=== PATIENT | female | born 1980 | race Caucasian/White ===

== ENCOUNTER → 2016-12-07 | Outpatient (CLI) | payer MEDICAID ==
[~2016-12-07] MED LIST: ALDA50TA2 PO; AMOX500C PO; ATOR40TA16 PO; CLAR10CA3 PO; DULE100A INH; FLUT1INH7 INH; FLUT1SPR5 EACH NARE; FURO1TAB62 PO; HYDR-3535 PO; INFL1INJ54 IM; LORA-361 PO; OXYC1TAB36 PO; PROT40TA PO; RANI150T PO; VENTAER INH; ZANT150T2 PO; ZOFR4TAB PO
[2016-12-07 10:43] LABS: HEMATOCRIT 43.1 % (35.0-46.0); MEAN CELL VOLUME 83.7 FL (80.0-100.0); MEAN CORPUSCULAR HEMOGLOBIN 28.6 PG (27.0-34.0); MEAN CORPUSCULAR HGB CONC 34.1 % (32.0-36.0); PLATELET COUNT 199 TH/MM3 (150-450); RED BLOOD COUNT 5.15 MIL/MM3 (4.00-5.30); RED CELL DISTRIBUTION WIDTH 14.6 % (11.6-17.2); REVIEW FLAG FINAL; WHITE BLOOD COUNT 7.2 TH/MM3 (4.0-11.0)
[2016-12-07 11:04] LABS: BICARBONATE 33.6 MEQ/L (21.0-32.0); POTASSIUM 4.3 MEQ/L (3.5-5.1)
== END ==
LOC: CPRE 09:37
PROVIDERS: ATTEND Neurological Surgery
DX: Z01.812 Encounter for preprocedural laboratory examination (principal)
CPT/HCPCS: 36415; 80048; 85027

== ENCOUNTER → 2016-12-13 | Day surgery (SDC) | payer MEDICAID ==
[~2016-12-13] VITALS: Ht 157.5 cm; Wt 88.7 kg
[~2016-12-13] MED LIST changes: +*ONDANSETRON 4 MG VIAL PERIprocedural Use ONLY ONE; +ACETAMINOPHEN 1000 MG/100 ML VIAL IV ONE; +DO NOT ADM ANY ANTICOAGULANT DRUGS XX PRN; +GELFOAM SIZE 100 ONE; +GENTAMICIN SULFATE 80 MG/2 ML VIAL ONE; +HYDROmorphone HCL PF 2 MG/ML VIAL ONE; +INSULIN HUMAN REGULAR 1,000 UNITS/10 ML VIAL SQ PRN; +LACTATED RINGER'S 1000 ML IV SCH; +LIDOCAINE 1%/EPINEPHrine 1:100,000 SOLN 30 ML VIAL ONE; +METOPROLOL TARTRATE 25 MG TAB PO PRN; +MIDAZOLAM HCL 2 MG/2 ML VIAL ONE; +NEOSTIGMINE 3 MG/3 ML SYR IV ONE; +ONDANSETRON HCL 4 MG/2 ML VIAL IV PUSH ONE; +PHENYLEPH/NS 1000 MCG/10 ML SYR IV ONE; +PROPOFOL 200 MG/20 ML AMP IV ONE; -RANI150T PO; +SODIUM CHLORID 0.9% 500 ML IV SCH; +SUGAMMADEX SODIUM 200 MG/2 ML VIAL IV PUSH ONE; +THROMBIN (TOPICAL) 5,000 UNIT VIAL ONE; +ceFAZolin 1,000 MG/NS 100 ML IV SCH; +ePHEDrine/NS 25 MG/5 ML SYR IV ONE; +fentaNYL CITRATE 250 MCG/5 ML AMP ONE
[2016-12-13 13:59] VITALS: BP 118/83; PULSE 90; RESP 20; TEMP 99.1; O2SAT 97
--- NOTE | 2016-12-13 17:43 | HHI.DCPOC ---
Discharge Care Plan Diagnosis: (1) Pseudotumor cerebri Your Health Problems Are: Incision/Drains Goals to Promote Your Health * To prevent worsening of your condition and complications * To maintain your health at the optimal level Directions to Meet Your Goals Take your medications as prescribed Follow your dietary instruction Follow activity as directed Keep your appointments as scheduled Take your immunizations and boosters as scheduled If your symptoms worsen call your PCP, if no PCP go to Urgent Care Center or Emergency Room Smoking is Dangerous to Your Health. Avoid second hand smoke Call the 24-hour hour crisis hotline for domestic abuse at Ag Morse MD Dec 13, 2016 17:43
--- NOTE | 2016-12-13 18:00 | PD.OP ---
Operative Report Date of Surgery: Dec 13, 2016 Preoperative Diagnosis: (1) Pseudotumor cerebri Pseudotumor cerebri. Status post lumboperitoneal shunt placement with probable low CSF pressure headaches Postoperative Diagnosis: (1) Pseudotumor cerebri Pseudotumor cerebri. Status post lumboperitoneal shunt placement with probable low CSF pressure headaches Procedure: Revision lumboperitoneal shunt with placement of antisiphon valve and in-line reservoir Anesthesia: Gen. endotracheal Surgeon: Ag Morse High Value Associate(s): Ioana Ward Operation and Findings: Patient was brought into the operating room and general endotracheal anesthesia induced without difficulty. CHARLETTE hose and sequential compression devices placed Patient positioned in lateral decubitus position on the beanbag and all extremities appropriately padded The right flank as well as the right abdomen and the sacral region were prepped and draped in a sterile fashion Intraoperative C-arm imaging was used to localize the area of the previously placed lumboperitoneal shunt valve at the right flank. Appropriate time out procedure was performed with all personal present and in agreement 1% Xylocaine with epinephrine was used for local filtration of the incision site which was made overlying the previously placed right flank lumboperitoneal shunt valve. The previously placed valve and adjacent catheter was exposed. The catheter proximal and distal to the valve was cut and the previously placed valve removed. There was good spontaneous flow of clear colorless CSF from the proximal lumbar catheter. The Integra yellow medium pressure HV valve along with the subcutaneous reservoir were flushed with antibiotic irrigation. The distal lumbar catheter was secured to the proximal port of the subcutaneous reservoir , and the stepdown connector and tubing were attached between the distal port of the subcutaneous reservoir, and the proximal clear tubing of the HV Valve, with the final connection between the distal opaque outlet tubing of the valve and the proximal aspect of the distal peritoneal catheter tubing. All of the above noted connections were secured with the 2-0 silk ties. Prior to the final connection of the tubing with the peritoneal catheter, a check was made to ensure that there was good spontaneous flow of CSF through the reservoir-valve assembly. Direct inspection as well as a intraoperative x-ray were performed to ensure that there were no kinks in the tubing. The valve was sutured in place in the correct orientation, with the pointed portion of the valve pointing towards the patient's feet. The region was well irrigated with antibiotic irrigation. The closure was performed with 3-0 Vicryl interrupted for the subcutaneous closure and 4-0 Vicryl running for the subcuticular closure Dressing of sterile benzoin, Steri-Strips, and Primapore was placed Patient was taken to recovery room in stable condition All counts were correct at the end of the case No Specimens sent to pathology Estimated blood loss 10 cc Ag Morse MD Dec 13, 2016 18:00
[2016-12-13 18:38] VITALS: BP 101/69; PULSE 77; RESP 18; TEMP 97.5; O2SAT 99
--- NOTE | 2016-12-13 19:23 | RADRPT ---
EXAM DATE/TIME: 12/13/2016 15:18 [facility] COMPARISON: No previous studies available for comparison. INDICATIONS : Shunt valve replacement. MEDICAL HISTORY : None. SURGICAL HISTORY : Shunt. ENCOUNTER: Initial ACUITY: 1 day PAIN SCORE: Non-responsive. LOCATION: Lumbar. FINDINGS: Single lateral view of the lumbar spine demonstrates radiopaque tubing and a valve from a shunt. The tubing appears to be intact. CONCLUSION: Intact appearing shunt valve and tubing. Cristhian Simons MD on December 13, 2016 at 19:20 Board Certified Radiologist. This report was verified electronically.
== END | disposition home or self-care (01) ==
LOC: HSDC 13:00
PROVIDERS: ATTEND Neurological Surgery
DX: G93.2 Benign intracranial hypertension (principal)
CPT/HCPCS: 00220; 62230; 72020; 76000; J0131; J0690; J1580; J2250; J2370; J2405; J2710; J3010; J7120; J1170

== ENCOUNTER 2017-03-24 09:34 | Emergency (ER) | payer MEDICAID ==
[~2017-03-24] VITALS: Ht 157.5 cm; Wt 85.0 kg
[~2017-03-24 09:34] MED LIST changes: -*ONDANSETRON 4 MG VIAL PERIprocedural Use ONLY ONE; -ACETAMINOPHEN 1000 MG/100 ML VIAL IV ONE; -ATOR40TA16 PO; -CLAR10CA3 PO; -DO NOT ADM ANY ANTICOAGULANT DRUGS XX PRN; -DULE100A INH; -GELFOAM SIZE 100 ONE; -GENTAMICIN SULFATE 80 MG/2 ML VIAL ONE; -HYDROmorphone HCL PF 2 MG/ML VIAL ONE; -INSULIN HUMAN REGULAR 1,000 UNITS/10 ML VIAL SQ PRN; -LACTATED RINGER'S 1000 ML IV SCH; -LIDOCAINE 1%/EPINEPHrine 1:100,000 SOLN 30 ML VIAL ONE; -METOPROLOL TARTRATE 25 MG TAB PO PRN; -MIDAZOLAM HCL 2 MG/2 ML VIAL ONE; -NEOSTIGMINE 3 MG/3 ML SYR IV ONE; -ONDANSETRON HCL 4 MG/2 ML VIAL IV PUSH ONE; -PHENYLEPH/NS 1000 MCG/10 ML SYR IV ONE; -PROPOFOL 200 MG/20 ML AMP IV ONE; -SODIUM CHLORID 0.9% 500 ML IV SCH; -SUGAMMADEX SODIUM 200 MG/2 ML VIAL IV PUSH ONE; -THROMBIN (TOPICAL) 5,000 UNIT VIAL ONE; -ZOFR4TAB PO; -ceFAZolin 1,000 MG/NS 100 ML IV SCH; -ePHEDrine/NS 25 MG/5 ML SYR IV ONE; -fentaNYL CITRATE 250 MCG/5 ML AMP ONE
[2017-03-24 09:35] VITALS: BP 132/85; PULSE 94; RESP 20; TEMP 97.8; O2SAT 98
[2017-03-24] MEDS ORDERED: ATOR40TA16 PO (09:49)
[2017-03-24] MEDS ORDERED: DULE100A INH (09:49)
--- NOTE | 2017-03-24 10:24 | PD ---
HPI Chief Complaint: GI Complaint Time Seen by Provider: 10:13 Travel History International Travel<30 days: No Contact w/Intl Traveler<30days: No Traveled to known affect area: No History of Present Illness HPI The patient was seen and examined in the presence of the nurse. Patient complains of diarrhea. Duration 3 days. Severity is moderate. No blood or mucus. She is not vomiting or having abdominal or pelvic pains. No ill contacts. No alleviating factors. She says that she has had 5 weight loss in 3 days PFSH Past Medical History Anemia: Yes (GESTATIONAL) Arthritis: Yes (rheumatoid) Asthma: Yes Autoimmune Disease: Yes (RA) Blood Disorders: No Bipolar Disorder: Yes Anxiety: Yes Depression: Yes (BI-POLAR) Heart Rhythm Problems: Yes ("PALPITATIONS") Cancer: No Cardiovascular Problems: No High Cholesterol: Yes Chest Pain: No Congestive Heart Failure: No COPD: No Diabetes: No Diminished Hearing: No Endocrine: No Fibromyalgia: Yes Gastrointestinal Disorders: Yes (ACID REFLUX, ENLARGED LIVER) GERD: Yes Genitourinary: No Hepatitis: No Hiatal Hernia: Yes Hypertension: No Immune Disorder: Yes (R. ARTHRITIS) Implanted Vascular Access Dvce: No Kidney Stones: Yes Musculoskeletal: Yes (OA IN NECK) Neurologic: Yes (MIGRAINES,FIBROMYALGIA,IIH (FALSE BRAIN TUMOR), VERTIGO) Psychiatric: Yes (PANIC DISORDER) Reproductive: Yes (excessive bleeding) Respiratory: Yes (ASTHMA) Immunizations Current: Yes Migraines: Yes Pancreatitis: Yes (denies) Thyroid Disease: No ?: Not LMP: hysterectomy : 5 Para: 3 : 2 Dilation and Curettage (D&C): Yes Tubal Ligation: Yes (2007) Past Surgical History Abdominal Surgery: No AICD: No Body Medical Devices: LUMBAR-PERITONEAL SHUNT Cardiac Surgery: No Section: Yes (X 1) Ear Surgery: No (PE) Endocrine Surgery: No Eye Surgery: No Genitourinary Surgery: No Gynecologic Surgery: Yes (UTERINE ABLATION 2010 tubaligation,HYST) Hysterectomy: Yes Joint Replacement: No Neurologic Surgery: Yes (LUMBAR-PERITONEAL SHUNT) Oral Surgery: No Pacemaker: No Thoracic Surgery: No Tonsillectomy: Yes (adenoids too) Tympanostomy Tube: Yes Other Surgery: Yes (, UTERINE ABLATION, TONSILECTOMY, ADENOID REMOVED) Social History Alcohol Use: No Tobacco Use: No (QUIT AUGUST 2013) Substance Use: No (QUIT February) Allergies-Medications (Allergen,Severity, Reaction): Coded Allergies: [place] (Unverified Allergy, Severe, unknown, 01/05/17) Soybean (Verified Allergy, Severe, SEVERE GI UPSET, 01/05/17) Albuterol (Verified Allergy, Intermediate, shakiness,anxiety, 01/05/17) Dilaudid (Verified Allergy, Intermediate, chest pain, 01/05/17) Doxycycline (Verified Allergy, Intermediate, severe vomiting/diarrhea, ) Egg Allergy (Verified Allergy, Intermediate, 01/05/17) gi upset Flexeril (Verified Allergy, Intermediate, sweating,unable to sleep and anxiety, 01/05/17) Lamictal (Verified Allergy, Intermediate, racing thoughts,worsened anxiety , 01/05/17) Morphine (Verified Allergy, Intermediate, chest pain, 01/05/17) Risperdal (Verified Allergy, Intermediate, tardive dyskinesia, 01/05/17) Vancomycin (Verified Allergy, Intermediate, Hives/SOB, 01/05/17) Red man syndrome PEANUTS (Verified Allergy, Unknown, 01/05/17) gi upset Bactrim (Verified Adverse Reaction, Severe, Nausea/Vomiting, 01/05/17) FACE SEVERELY RED, FEELS LIKE SKIN BURNING, VOMITING/Diarrhea Lovenox (Verified Adverse Reaction, Severe, RED RASH ON ABDOMEN AT INJECTION SITE, 01/05/17) *MDRO Multi-Drug Resistant Organism (Verified Adverse Reaction, Unknown, ) MRSA urine 01/14/15. Reported Meds & Prescriptions Reported Meds & Active Scripts Active Oxycodone-Acetaminophen 10-325 mg Tab 1 Tab PO Q6H PRN Reported Dulera 120 Act Inh (Mometasone-Formoterol 120 Act Inh) 100-5 Mcg/Act Inh 2 Puff INH BID Atorvastatin (Atorvastatin Calcium) 40 Mg Tab 40 Mg PO HS Claritin (Loratadine) 10 Mg Tab 10 Mg PO DAILY Zantac (Ranitidine HCl) 150 Mg Tab 150 Mg PO DAILY Protonix (Pantoprazole Sodium) 40 Mg Tab 40 Mg PO DAILY Aldactone (Spironolactone) 50 Mg Tab 50 Mg PO BID Lasix (Furosemide) 20 Mg Tab 20 Mg PO BID Ventolin Hfa 18 GM Inh (Albuterol Sulfate) 90 Mcg/Act Aer 2 Puff INH Q6HR PRN Review of Systems General / Constitutional: Positive: Weight Loss, No: Fever Eyes: No: Visual changes HENT: No: Headaches Cardiovascular: No: Chest Pain or Discomfort Respiratory: No: Shortness of Breath Gastrointestinal: Positive: Diarrhea, No: Abdominal Pain Genitourinary: No: Dysuria Musculoskeletal: No: Pain Skin: No Rash Neurologic: No: Weakness Psychiatric: No: Depression Endocrine: No: Polydipsia Hematologic/Lymphatic: No: Easy Bruising Physical Exam Narrative GENERAL: Well-nourished, well-developed patient in no apparent distress. SKIN: Focused skin assessment reveals no rash and nodules. Skin is Warm and dry. HEAD: Atraumatic. Normocephalic. EYES: Pupils equal and round. No scleral icterus. No injection or drainage. ENT: No nasal bleeding or discharge. Mucous membranes pink and moist. NECK: Trachea midline. No JVD. CARDIOVASCULAR: Regular rate and rhythm. No murmur appreciated. RESPIRATORY: No accessory muscle use. Clear to auscultation. Breath sounds equal bilaterally. GASTROINTESTINAL: Abdomen soft, non-tender, nondistended. Hepatic and splenic margins not palpable. MUSCULOSKELETAL: No obvious deformities. No clubbing. No cyanosis. No edema. NEUROLOGICAL: Awake and alert. No obvious cranial nerve deficits. Motor grossly within normal limits. Normal speech. PSYCHIATRIC: Appropriate mood and affect; insight and judgment normal. Data Data Last Documented VS Vital Signs Date Time Temp Pulse Resp B/P Pulse Ox O2 Delivery O2 Flow Rate FiO2 03/24/17 09:49 18 03/24/17 09:35 97.8 94 132/85 98 Room Air Orders Isolation 08,20 (03/24/17 09:44) Iv Access Insert/Monitor (03/24/17 10:18) Complete Blood Count With Diff (03/24/17 10:18) Basic Metabolic Panel (Bmp) (03/24/17 10:18) Sodium Chlor 0.9% 1000 Ml Inj (Ns 1000 M (03/24/17 10:30) Labs Laboratory Tests Test 03/24/17 10:25 White Blood Count 4.9 TH/MM3 Red Blood Count 5.28 MIL/MM3 Hemoglobin 15.0 GM/DL Hematocrit 44.5 % Mean Corpuscular Volume 84.3 FL Mean Corpuscular Hemoglobin 28.5 PG Mean Corpuscular Hemoglobin 33.8 % Concent Red Cell Distribution Width 14.1 % Platelet Count 147 TH/MM3 Mean Platelet Volume 9.5 FL Neutrophils (%) (Auto) 69.1 % Lymphocytes (%) (Auto) 20.1 % Monocytes (%) (Auto) 9.0 % Eosinophils (%) (Auto) 1.5 % Basophils (%) (Auto) 0.3 % Neutrophils # (Auto) 3.4 TH/MM3 Lymphocytes # (Auto) 1.0 TH/MM3 Monocytes # (Auto) 0.4 TH/MM3 Eosinophils # (Auto) 0.1 TH/MM3 Basophils # (Auto) 0.0 TH/MM3 CBC Comment DIFF FINAL Differential Comment Sodium Level 139 MEQ/L Potassium Level 4.0 MEQ/L Chloride Level 106 MEQ/L Carbon Dioxide Level 22.6 MEQ/L Anion Gap 10 MEQ/L Blood Urea Nitrogen 10 MG/DL Creatinine 0.83 MG/DL Estimat Glomerular Filtration 77 ML/MIN Rate Random Glucose 95 MG/DL Calcium Level 8.4 MG/DL [facility] Medical Decision Making Medical Screen Exam Complete: Yes Emergency Medical Condition: Yes Medical Record Reviewed: Yes Differential Diagnosis Gastroenteritis, food poisoning, colitis Narrative Course I have reviewed the patient's electronic medical record. Patient had lumboperitoneal shunt placed for pseudotumor cerebri earlier this year She is not having fever or headache or back pain She's had 3 days of diarrhea with weight loss IV placed I gave her 1 L normal saline IV bolus CBC is normal Metabolic profile is normal Workup here is negative and she is well-hydrated. Diagnosis Primary Impression: Diarrhea Qualified Code: A09 - Diarrhea of presumed infectious origin Additional Impression: Weight loss Additional Instructions: The patient was advised to follow up with their physician and return if they worsen. Med/Other Pt SpecificInfo: Other Disposition: 01 DISCHARGE HOME Condition: Stable Fredy Feliciano MD Mar 24, 2017 10:24
[2017-03-24] MEDS ORDERED: SODIUM CHLOR 0.9% 1000 ML INJ 1,000 ML IV ONE (10:30)
[2017-03-24 10:44] LABS: AUTOMATED NEUTROPHIL # 3.4 TH/MM3 (1.8-7.7); BASOPHIL % 0.3 % (0.0-2.0); EOSINOPHIL # 0.1 TH/MM3 (0-0.4); EOSINOPHIL % 1.5 % (0.0-4.0); HEMATOCRIT 44.5 % (35.0-46.0); HEMO FLAGS DIFF FINAL; LYMPH % 20.1 % (9.0-44.0); MEAN CELL VOLUME 84.3 FL (80.0-100.0); MEAN CORPUSCULAR HEMOGLOBIN 28.5 PG (27.0-34.0); MEAN CORPUSCULAR HGB CONC 33.8 % (32.0-36.0); NEUT % 69.1 % (16.0-70.0); PLATELET COUNT 147 TH/MM3 (150-450); RED BLOOD COUNT 5.28 MIL/MM3 (4.00-5.30); RED CELL DISTRIBUTION WIDTH 14.1 % (11.6-17.2); WHITE BLOOD COUNT 4.9 TH/MM3 (4.0-11.0)
[2017-03-24 11:03] LABS: BICARBONATE 22.6 MEQ/L (21.0-32.0)
== END 2017-03-24 12:30 | disposition home or self-care (01) ==
LOC: NEPD 09:34
DX: A09 Infectious gastroenteritis and colitis, unspecified (principal); R63.4 Abnormal weight loss
CPT/HCPCS: 80048; 85025; 96360; 99284; J7030

== ENCOUNTER 2017-04-14 12:20 | Emergency (ER) | payer MEDICAID ==
[~2017-04-14] VITALS: Ht 157.5 cm; Wt 83.0 kg
[~2017-04-14 12:20] MED LIST changes: -AMOX500C PO; +ATOR40TA16 PO; +DULE100A INH; -FLUT1INH7 INH; -FLUT1SPR5 EACH NARE; -HYDR-3535 PO
[2017-04-14 12:22] VITALS: BP 136/98; PULSE 89; RESP 16; TEMP 98.2; O2SAT 98
[2017-04-14 13:28] LABS: AUTOMATED NEUTROPHIL # 4.4 TH/MM3 (1.8-7.7); BASOPHIL % 0.4 % (0.0-2.0); EOSINOPHIL # 0.1 TH/MM3 (0-0.4); EOSINOPHIL % 1.4 % (0.0-4.0); HEMATOCRIT 47.3 % (35.0-46.0); LYMPH % 27.1 % (9.0-44.0); LYMPHOCYTE # 1.8 TH/MM3 (1.0-4.8); MEAN CELL VOLUME 84.6 FL (80.0-100.0); MEAN CORPUSCULAR HEMOGLOBIN 28.7 PG (27.0-34.0); MEAN CORPUSCULAR HGB CONC 33.9 % (32.0-36.0); MONO % 6.4 % (0.0-8.0); NEUT % 64.7 % (16.0-70.0); PLATELET COUNT 183 TH/MM3 (150-450); RED BLOOD COUNT 5.59 MIL/MM3 (4.00-5.30); WHITE BLOOD COUNT 6.8 TH/MM3 (4.0-11.0)
[2017-04-14 13:32] LABS: HEMO FLAGS AUTO DIFF
[2017-04-14 13:45] LABS: ANION GAP 9 MEQ/L (5-15); BICARBONATE 26.3 MEQ/L (21.0-32.0); BLOOD UREA NITROGEN 9 MG/DL (7-18); CHLORIDE 103 MEQ/L (98-107); GLOMERULAR FILTRATION RATE 66 ML/MIN (>89); POTASSIUM 3.6 MEQ/L (3.5-5.1); SODIUM (NA) 138 MEQ/L (136-145)
[2017-04-14 13:46] LABS: ALT (GPT) 36 U/L (10-53); AST (GOT) 20 U/L (15-37)
--- NOTE | 2017-04-14 13:46 | RADRPT ---
EXAM DATE/TIME: 04/14/2017 12:51 [facility] COMPARISON: SPINE LUMBAR LTD (AP & LAT), September 20, 2016, 10:39. SPINE LUMBAR LATERAL ONLY, December 13, 2016, 15:18. INDICATIONS : Evaluate LP shunt, shunt was placed in 09/30 and revised in 12/30. Last evening patient became dizzy, disoriented, could not speak and was lethargic MEDICAL HISTORY : Rheumatoid arthritis. IIH SURGICAL HISTORY : Tubal ligation. Appendectomy. ENCOUNTER: Initial ACUITY: 1 day PAIN SCORE: 0/10 LOCATION: Right abdomen FINDINGS: Patient has an apparent thecal catheter evident with the second component appears to be projected ove r the liver. I'm not sure what this is aware goes. This may merely be in the peritoneal space. The valve is seen in the right mid abdomen. The shunt appears intact. CONCLUSION: Shunt as described above. Mj Victoria MD FACR on April 14, 2017 at 13:42 Board Certified Radiologist. This report was verified electronically.
[2017-04-14 13:48] LABS: ALKALINE PHOSPHATASE 106 U/L (45-117); TOTAL BILIRUBIN ADULT 1.2 MG/DL (0.2-1.0)
--- NOTE | 2017-04-14 13:56 | RADRPT ---
EXAM DATE/TIME: 04/14/2017 13:43 [facility] COMPARISON: CT BRAIN W/O CONTRAST, February 25, 2016, 16:34. INDICATIONS : Syncopal episode last night; woke up this morning with confusion. RADIATION DOSE: 56.38 CTDIvol (mGy) MEDICAL HISTORY : Rheumatoid arthritis. GERD SURGICAL HISTORY : Hysterectomy. Shunt ENCOUNTER: Initial ACUITY: 2 days PAIN SCALE: 2/10 LOCATION: Bilateral cranial TECHNIQUE: Multiple contiguous axial images were obtained of the head. Using automated exposure control and adj ustment of the mA and/or kV according to patient size, radiation dose was kept as low as reasonably a chievable to obtain optimal diagnostic quality images. DICOM format image data is available electro nically for review and comparison. FINDINGS: CEREBRUM: The ventricles are normal for age. No evidence of midline shift, mass lesion, hemorrhage or acute in farction. No extra-axial fluid collections are seen. POSTERIOR FOSSA: The cerebellum and brainstem are intact. The 4th ventricle is midline. The cerebellopontine angle i s unremarkable. EXTRACRANIAL: The visualized portion of the orbits is intact. SKULL: The calvaria is intact. No evidence of skull fracture. CONCLUSION: Negative. Ventricular size is appropriate. Inflammatory process not excluded. Mj Victoria MD FACR on April 14, 2017 at 13:52 Board Certified Radiologist. This report was verified electronically.
[2017-04-14 14:02] LABS: SCAN/DIFF AUTO DIFF CONFIRMED
[2017-04-14] MEDS ORDERED: CLAR10CA3 PO (14:15)
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
--- NOTE | 2017-04-14 14:26 | RADRPT ---
EXAM DATE/TIME: 04/14/2017 12:51 [facility] COMPARISON: CHEST SINGLE AP, May 12, 2016, 23:37. INDICATIONS : Evaluate LP shunt. Shunt was placed in 09/30 and revised in 12/30. Last evening patient became dizzy, disoriented and lethargic MEDICAL HISTORY : Rheumatoid arthritis. IIH SURGICAL HISTORY : Tubal ligation. Appendectomy. ENCOUNTER: Initial ACUITY: 1 day PAIN SCORE: 0/10 LOCATION: Bilateral chest FINDINGS: A single view of the chest demonstrates the lungs to be symmetrically aerated without evidence of mas s, infiltrate or effusion. The cardiomediastinal contours are unremarkable. Lumboperitoneal drain a ppears intact. Osseous structures are intact. CONCLUSION: Negative chest for acute disease. Mj Victoria MD FACR on April 14, 2017 at 14:14 Board Certified Radiologist. This report was verified electronically.
[2017-04-14] MEDS ORDERED: ONDANSETRON ODT 4 MG TAB PO ONE (14:45)
[2017-04-14] MEDS ORDERED: oxyCODONE/ACETAMINOPHEN 7.5 MG/325 MG TAB PO ONE (14:45)
[2017-04-14] MEDS ORDERED: ZOFR4TAB PO (15:08)
--- NOTE | 2017-04-14 17:56 | EKG ---
Date Performed: 04/14/2017 Time Performed: 14:23:06 PTAGE: 36 years EKG: Sinus rhythm NORMAL ECG NO SIGNIFICANT CHANGE FROM PRIOR ELECTROCARDIOGRAM. PREVIOUS TRACING : 05/12/2016 21.16 DOCTOR: Rayray Jacobson Interpretating Date/Time 04/14/2017 17:55:52
== END 2017-04-14 15:22 | disposition home or self-care (01) ==
LOC: NEPD 12:20
DX: G43.909 Migraine, unspecified, not intractable, without status migrainosus (principal); R11.10 Vomiting, unspecified; D64.9 Anemia, unspecified; M06.9 Rheumatoid arthritis, unspecified; F31.9 Bipolar disorder, unspecified; K21.9 Gastro-esophageal reflux disease without esophagitis; J45.909 Unspecified asthma, uncomplicated; F41.9 Anxiety disorder, unspecified; E78.00 Pure hypercholesterolemia, unspecified
CPT/HCPCS: 70450; 71010; 74000; 80053; 83690; 85025; 93005

== ENCOUNTER → 2017-07-21 | Day surgery (SDC) | payer MEDICAID ==
[~2017-07-21] VITALS: Ht 157.5 cm; Wt 80.0 kg
[~2017-07-21] MED LIST changes: +ACYC-101 PO; +BUPIVACAINE/EPINEPHRINE 0.5% PF 10 ML VIAL ONE; +CHLORHEXIDINE GLUCONATE 2 % 1 PACK (2 CLOTHS) TOPICAL PRN; +CHLORHEXIDINE GLUCONATE 4% SOLN 120 ML BTL TOPICAL SCH; +CLAR10CA3 PO; +DEXAMETHASONE SOD PHOS 4 MG/ML VIAL ONE; +INSULIN HUMAN REGULAR 1,000 UNITS/10 ML VIAL SQ PRN; +LACTATED RINGER'S 1000 ML INJ 1,000 ML IV ONE; +LACTATED RINGER'S 1000 ML IV PRN; -LORA-361 PO; +MAGICADU2 SWISH-SWAL; +METOPROLOL TARTRATE 25 MG TAB PO PRN; +MIDAZOLAM HCL 5 MG/ML VIAL (1 ML) ONE; +POVIDONE IODINE 5% (ANTISEPSIS KIT) 4 APPLICATIONS EACH NARE PRN; +SODIUM CHLORID 0.9% 500 ML IV PRN; +SUGAMMADEX SODIUM 200 MG/2 ML VIAL IV PUSH ONE; +ZOFR4TAB PO; +ceFAZolin 2 GM PREMIX 50 ML IV SCH
[2017-07-21 10:30] VITALS: PULSE 90
[2017-07-21 10:45] VITALS: PULSE 75
[2017-07-21 13:26] VITALS: PULSE 113
[2017-07-21 14:00] VITALS: TEMP 98.5
--- NOTE | 2017-07-21 14:06 | MP ---
cc: JUSTINO ALBERT M.D. DATE OF SURGERY: 07/21/2017 SURGEON: Justino Albert MD. PREOPERATIVE DIAGNOSIS: Rotator cuff tear with impingement syndrome in the left shoulder. POSTOPERATIVE DIAGNOSIS: Rotator cuff tear with impingement syndrome in the left shoulder. OPERATION: Anterior decompression with repair of rotator cuff, chronic. DETAILS OF PROCEDURE: The patient was first placed on the operating room table in the supine position. Adequate general anesthesia was administered by the anesthesiologist. The patient was then placed in modified beach-chair position and the left shoulder was prepped and draped in the usual sterile fashion. A time-out was called and the patient's name, location and procedure were fully confirmed. A 1-inch incision was made over the acromial process and taken down through subcutaneous tissues, all bleeding points were then electrocauterized. Deep fascia was incised along with the deltoid muscle insertion along the anterior border of the acromial process. The coracoacromial ligament was excised with it and the subdeltoid bursa also partially excised at this space. There was obvious impingement with narrowing of the subacromial space and downward sloping of the acromial process. This was then relieved with a high-speed power bur, thinning the acromial process throughout its extent. The underlying rotator cuff was further debrided from bursal tissues and we did encounter a longitudinal tear, more proximal in nature and more posterior in location. This was closed with [id number] she suture utilizing #2 FiberWire. After thorough irrigation of all bony fragments and shavings. The deltoid muscle was reinserted with interrupted sutures of #2 FiberWire the skin edges were correct at the subcutaneous tissue was closed with a running simple suture of 3-0 Vicryl and the skin edges approximated with a running subcuticular 4-0 Vicryl. Steri-Strips were applied, followed by application of a bulky dressing and a sling and swath immobilizer. The estimated blood loss was minimal, the sponge count, needle counts were reported correct x2. The patient was transferred to recovery room in satisfactory condition. Justino Albert MD [facility]/ /1:11 PM /1:53 PM
[2017-07-21 14:25] VITALS: BP 104/73; PULSE 81; RESP 16; O2SAT 96
== END | disposition home or self-care (01) ==
LOC: PHSDC 08:00
PROVIDERS: ATTEND Orthopaedic Surgery
DX: M75.112 Incomplete rotator cuff tear or rupture of left shoulder, not specified as traumatic (principal); M75.42 Impingement syndrome of left shoulder
CPT/HCPCS: 01610; 23412; 64415; J0690; J1100; J2250; J7120

== ENCOUNTER 2017-07-22 12:12 | Emergency (ER) | payer MEDICAID ==
[~2017-07-22] VITALS: Ht 157.5 cm; Wt 80.0 kg
[~2017-07-22 12:12] MED LIST changes: -BUPIVACAINE/EPINEPHRINE 0.5% PF 10 ML VIAL ONE; -CHLORHEXIDINE GLUCONATE 2 % 1 PACK (2 CLOTHS) TOPICAL PRN; -CHLORHEXIDINE GLUCONATE 4% SOLN 120 ML BTL TOPICAL SCH; -DEXAMETHASONE SOD PHOS 4 MG/ML VIAL ONE; -INSULIN HUMAN REGULAR 1,000 UNITS/10 ML VIAL SQ PRN; -LACTATED RINGER'S 1000 ML INJ 1,000 ML IV ONE; -LACTATED RINGER'S 1000 ML IV PRN; -MAGICADU2 SWISH-SWAL; -METOPROLOL TARTRATE 25 MG TAB PO PRN; -MIDAZOLAM HCL 5 MG/ML VIAL (1 ML) ONE; -POVIDONE IODINE 5% (ANTISEPSIS KIT) 4 APPLICATIONS EACH NARE PRN; -SODIUM CHLORID 0.9% 500 ML IV PRN; -SUGAMMADEX SODIUM 200 MG/2 ML VIAL IV PUSH ONE; -ceFAZolin 2 GM PREMIX 50 ML IV SCH
[2017-07-22 12:14] VITALS: BP 153/98; PULSE 107; RESP 16; TEMP 98.7; O2SAT 97
[2017-07-22] MEDS ORDERED: diphenhydrAMINE HCL 50 MG/ML VIAL IV PUSH ONE (13:30)
[2017-07-22] MEDS ORDERED: methylPREDNISolone SOD SUCC 125 MG/2 ML VIAL IV PUSH ONE (13:30)
--- NOTE | 2017-07-22 13:30 | PD ---
HPI Chief Complaint: Pain: Acute or Chronic Time Seen by Provider: 13:07 Travel History International Travel<30 days: No Contact w/Intl Traveler<30days: No Traveled to known affect area: No History of Present Illness HPI The patient was seen and examined in the presence of the nurse. This patient had rotator cuff surgery of the left shoulder yesterday. Today she started to cough up some bright red blood. No shortness of breath or chest pain. She has awkward sensation in the back of her throat. Severity is moderate. Duration one day. She denies any new medications. She has no skin findings. No exacerbating factors. No alleviating factors. PFSH Past Medical History Anemia: Yes (GESTATIONAL) Arthritis: Yes (rheumatoid) Asthma: Yes Autoimmune Disease: Yes (RA) Blood Disorders: No Bipolar Disorder: Yes Anxiety: Yes Depression: Yes (BI-POLAR) Heart Rhythm Problems: Yes ("PALPITATIONS") Cancer: No Cardiovascular Problems: Yes High Cholesterol: Yes Chest Pain: No Congestive Heart Failure: No COPD: No Diabetes: No Diminished Hearing: No Endocrine: No Fibromyalgia: Yes Gastrointestinal Disorders: Yes (ACID REFLUX, ENLARGED LIVER) GERD: Yes Genitourinary: Yes Hepatitis: No Hiatal Hernia: Yes Hypertension: No Immune Disorder: Yes (FIBROMYALGIA, RA) Implanted Vascular Access Dvce: No Kidney Stones: Yes Musculoskeletal: Yes (RA, FIBROMYALGIA) Neurologic: Yes (IIH) Psychiatric: Yes (BIPOLAR, PTSD) Reproductive: Yes (HYSTERECTOMY) Respiratory: Yes (ASTHMA) Immunizations Current: No Migraines: Yes Pancreatitis: Yes (denies) Thyroid Disease: No ?: Not : 5 Para: 3 : 2 Dilation and Curettage (D&C): Yes Tubal Ligation: Yes (2007) Past Surgical History Abdominal Surgery: No AICD: No Body Medical Devices: LUMBAR-PERITONEAL SHUNT Cardiac Surgery: No Section: Yes (X 1) Ear Surgery: No Endocrine Surgery: No Eye Surgery: No Genitourinary Surgery: No Gynecologic Surgery: Yes (HYSTERECTOMY, TUBAL, C SECTION) Hysterectomy: Yes Joint Replacement: No Neurologic Surgery: Yes (LUMBAR-PERITONEAL SHUNT) Oral Surgery: No Pacemaker: No Thoracic Surgery: No Tonsillectomy: Yes (adenoids too) Tympanostomy Tube: Yes Other Surgery: Yes (, UTERINE ABLATION, TONSILECTOMY, ADENOID REMOVED) Social History Alcohol Use: No Tobacco Use: No (QUIT AUGUST 2013) Substance Use: Yes (OCCASIONAL MARIJUANA) Allergies-Medications (Allergen,Severity, Reaction): Coded Allergies: Fish Containing Products (Verified Allergy, Severe, unknown, 07/22/17) soybean (Verified Allergy, Severe, SEVERE GI UPSET, 07/22/17) albuterol (Verified Allergy, Intermediate, shakiness,anxiety, 07/22/17) doxycycline (Verified Allergy, Intermediate, severe vomiting/diarrhea, 07/22/17) egg (Verified Allergy, Intermediate, 07/22/17) gi upset hydromorphone (Verified Allergy, Intermediate, chest pain, 07/22/17) lamotrigine (Verified Allergy, Intermediate, racing thoughts,worsened anxiety, 07/22/17) morphine (Verified Allergy, Intermediate, chest pain, 07/22/17) risperidone (Verified Allergy, Intermediate, tardive dyskinesia, 07/22/17) vancomycin (Verified Allergy, Intermediate, Hives/SOB, 07/22/17) Red man syndrome peanut (Verified Allergy, Unknown, 07/22/17) gi upset enoxaparin (Verified Adverse Reaction, Severe, RED RASH ON ABDOMEN AT INJECTION SITE, 07/22/17) sulfamethoxazole (Verified Adverse Reaction, Severe, Nausea/Vomiting, 07/22) FACE SEVERELY RED, FEELS LIKE SKIN BURNING, VOMITING/Diarrhea trimethoprim (Verified Adverse Reaction, Severe, Nausea/Vomiting, 07/22/17) FACE SEVERELY RED, FEELS LIKE SKIN BURNING, VOMITING/Diarrhea cyclobenzaprine (Verified Adverse Reaction, Intermediate, sweating,unable to sleep and anxiety, 07/22/17) *MDRO Multi-Drug Resistant Organism (Verified Adverse Reaction, Unknown, ) MRSA urine 01/14/15. Reported Meds & Prescriptions Reported Meds & Active Scripts Active Oxycodone-Acetaminophen 10-325 mg Tab 1 Tab PO Q6H PRN Reported Claritin (Loratadine) 10 Mg Cap 10 Mg PO DAILY Dulera 120 Act Inh (Mometasone-Formoterol 120 Act Inh) 100-5 Mcg/Act Inh 2 Puff INH BID Atorvastatin (Atorvastatin Calcium) 40 Mg Tab 40 Mg PO HS Zantac (Ranitidine HCl) 150 Mg Tab 150 Mg PO DAILY Protonix (Pantoprazole Sodium) 40 Mg Tab 40 Mg PO DAILY Aldactone (Spironolactone) 50 Mg Tab 50 Mg PO BID Lasix (Furosemide) 20 Mg Tab 20 Mg PO BID Review of Systems General / Constitutional: No: Fever Eyes: No: Visual changes HENT: No: Headaches Cardiovascular: No: Chest Pain or Discomfort Respiratory: Positive: Hemoptysis, No: Stridor Gastrointestinal: No: Abdominal Pain Genitourinary: No: Dysuria Musculoskeletal: No: Pain Skin: No Rash Neurologic: No: Weakness Psychiatric: No: Depression Endocrine: No: Polydipsia Hematologic/Lymphatic: No: Easy Bruising Physical Exam Narrative GENERAL: Well-nourished, well-developed patient with dressing on her left shoulder and left sling . SKIN: Focused skin assessment reveals no rash and nodules. Skin is Warm and dry. HEAD: Atraumatic. Normocephalic. EYES: Pupils equal and round. No scleral icterus. No injection or drainage. ENT: No nasal bleeding or discharge. Mucous membranes pink and moist but have a few areas of sloughing of the membrane. This includes uvula and the left buccal mucosa. There is one shallow ulcer on the right lower lip. NECK: Trachea midline. No JVD. CARDIOVASCULAR: Regular rate and rhythm. No murmur appreciated. RESPIRATORY: No accessory muscle use. Clear to auscultation. Breath sounds equal bilaterally. GASTROINTESTINAL: Abdomen soft, non-tender, nondistended. Hepatic and splenic margins not palpable. MUSCULOSKELETAL: Left shoulder dressing and sling in place. No clubbing. No cyanosis. No edema. NEUROLOGICAL: Awake and alert. No obvious cranial nerve deficits. Motor grossly within normal limits. Normal speech. PSYCHIATRIC: Appropriate mood and affect; insight and judgment normal. Data Data Last Documented VS Vital Signs Date Time Temp Pulse Resp B/P (MAP) Pulse Ox O2 Delivery O2 Flow Rate FiO2 07/22/17 12:14 98.7 107 16 153/98 (116) 97 Orders Orders Iv Access Insert/Monitor (07/22/17 13:22) Complete Blood Count With Diff (07/22/17 13:22) Basic Metabolic Panel (Bmp) (07/22/17 13:22) Prothrombin Time / Inr (Pt) (07/22/17 13:22) Act Partial Throm Time (Ptt) (07/22/17 13:22) Westergren Sedimentation Rate (07/22/17 13:22) Chest, Single Ap (07/22/17 ) Methylprednisolone So Succ Inj (Solumedr (07/22/17 13:30) Diphenhydramine Inj (Benadryl Inj) (07/22/17 13:30) Al-Mag Hy-Si 40-40-4 Mg/Ml Liq (Mag-Al P (07/22/17 14:15) Lidocaine 2% Viscous (Xylocaine 2% Visco (07/22/17 14:15) Labs Laboratory Tests Test 07/22/17 14:00 White Blood Count 9.5 TH/MM3 Red Blood Count 5.00 MIL/MM3 Hemoglobin 15.2 GM/DL Hematocrit 43.1 % Mean Corpuscular Volume 86.1 FL Mean Corpuscular Hemoglobin 30.3 PG Mean Corpuscular Hemoglobin Concent 35.2 % Red Cell Distribution Width 13.1 % Platelet Count 197 TH/MM3 Mean Platelet Volume 9.7 FL Neutrophils (%) (Auto) 74.9 % Lymphocytes (%) (Auto) 19.4 % Monocytes (%) (Auto) 5.2 % Eosinophils (%) (Auto) 0.3 % Basophils (%) (Auto) 0.2 % Neutrophils # (Auto) 7.1 TH/MM3 Lymphocytes # (Auto) 1.8 TH/MM3 Monocytes # (Auto) 0.5 TH/MM3 Eosinophils # (Auto) 0.0 TH/MM3 Basophils # (Auto) 0.0 TH/MM3 CBC Comment DIFF FINAL Differential Comment Prothrombin Time 11.0 SEC Prothromb Time International Ratio 1.0 RATIO Activated Partial Thromboplast Time 29.2 SEC Blood Urea Nitrogen 8 MG/DL Creatinine 0.82 MG/DL Random Glucose 99 MG/DL Calcium Level 8.6 MG/DL Sodium Level 139 MEQ/L Potassium Level 3.4 MEQ/L Chloride Level 105 MEQ/L Carbon Dioxide Level 26.2 MEQ/L Anion Gap 8 MEQ/L Estimat Glomerular Filtration Rate 78 ML/MIN MDM Medical Decision Making Medical Screen Exam Complete: Yes Emergency Medical Condition: Yes Medical Record Reviewed: Yes Differential Diagnosis Allergic reaction, anaphylaxis, Shaw-Rodrigo syndrome Narrative Course I have reviewed the patient's electronic medical record. Reviewed her operative note from yesterday. IV placed CBC is normal Metabolic profile is normal Coagulation studies are normal I reviewed her chest x-ray which is normal I gave her IV Benadryl and a dose of Maalox and viscous lidocaine Patient has been here 3 hours now and there is been no progression of her lesions. They are limited to the oral cavity mucous membrane. They're mostly discrete ulcer type lesions. I reviewed all of the up-to-date literature on Shaw-Rodrigo and its variants and she meets no criteria for that. There is 0 skin involvement. There is no genital involvement. She does have history of oral herpes and this may be the cause. She has acyclovir at home and will start 800 3 times a day I wrote some Magic mouthwash for symptom relief I don't see evidence for allergic reaction here Steroids are not indicated for Shaw-Rodrigo type variants We discussed at length the usefulness of her being in the hospital. I don't think this would benefit her at this point. There is no treatment in the hospital needed. If this worsens at all she will return. I've advised her to get a recheck tomorrow just to verify this is not progressive and she agrees to come back for recheck tomorrow since she will not be able to get in to see her physician on a Monday. Diagnosis Primary Impression: Oral mucositis Additional Instructions: The patient was warned about potential sedation for the medications they will receive on prescription. The patient was advised to follow up with their physician and return if they worsen. Get an emergency room recheck tomorrow to verify her disease process is not progressing Med/Other Pt SpecificInfo: Prescription(s) given Scripts Pesywapb-Ivlzspidytzquxm-Jgooejcvt Liq (Magic Mouthwash Adult Liq) 120 Ml Susp 10 ML SWISH-SWAL ACHS for Mouth sores, #120 ML 0 Refills Each 5mL contains: Nystatin 200,000units, Diphenhydramine 4.25mg, Viscous Lidocaine 10mg, Witt syrup 0.8 mL Prov: Fredy Feliciano MD 07/22/17 Disposition: 01 DISCHARGE HOME Condition: Stable Fredy Feliciano MD Jul 22, 2017 13:30
--- NOTE | 2017-07-22 13:57 | RADRPT ---
EXAM DATE/TIME: 07/22/2017 13:37 [facility] COMPARISON: CHEST SINGLE AP, April 14, 2017, 12:51. INDICATIONS : Short of breath. Cough. MEDICAL HISTORY : Rheumatoid arthritis. Smoker. SURGICAL HISTORY : Tubal ligation. Appendectomy. Hysterectomy. Right shoulder surgery yesterday. ENCOUNTER: Initial ACUITY: 1 day PAIN SCORE: 0/10 LOCATION: Bilateral chest FINDINGS: A single view of the chest demonstrates the lungs to be symmetrically aerated without evidence of mas s, infiltrate or effusion. The cardiomediastinal contours are unremarkable. Osseous structures are intact. CONCLUSION: 1. No acute cardiopulmonary findings. Erlin Victoria MD on July 22, 2017 at 13:55 Board Certified Radiologist. This report was verified electronically.
[2017-07-22 14:13] LABS: HEMATOCRIT 43.1 % (35.0-46.0); MEAN CELL VOLUME 86.1 FL (80.0-100.0); MEAN CORPUSCULAR HEMOGLOBIN 30.3 PG (27.0-34.0); MEAN CORPUSCULAR HGB CONC 35.2 % (32.0-36.0); WHITE BLOOD COUNT 9.5 TH/MM3 (4.0-11.0)
[2017-07-22 14:14] LABS: AUTOMATED NEUTROPHIL # 7.1 TH/MM3 (1.8-7.7); BASOPHIL % 0.2 % (0.0-2.0); EOSINOPHIL % 0.3 % (0.0-4.0); HEMO FLAGS DIFF FINAL; LYMPH % 19.4 % (9.0-44.0); LYMPHOCYTE # 1.8 TH/MM3 (1.0-4.8); MONO % 5.2 % (0.0-8.0); NEUT % 74.9 % (16.0-70.0); PLATELET COUNT 197 TH/MM3 (150-450); RED CELL DISTRIBUTION WIDTH 13.1 % (11.6-17.2)
[2017-07-22] MEDS ORDERED: ALUMINUM/MAGNESIUM/SIMETH 30 ML CUP PO ONE (14:15)
[2017-07-22] MEDS ORDERED: LIDOCAINE VISCOUS 2% SOLN 15 ML UDC PO ONE (14:15)
[2017-07-22 14:24] LABS: APTT (PATIENT) 29.2 SEC (24.3-30.1); BICARBONATE 26.2 MEQ/L (21.0-32.0); POTASSIUM 3.4 MEQ/L (3.5-5.1)
[2017-07-22] MEDS ORDERED: MAGICADU2 SWISH-SWAL (15:36)
== END 2017-07-22 15:55 | disposition home or self-care (01) ==
LOC: NEPD 12:12
DX: K12.30 Oral mucositis (ulcerative), unspecified (principal); R04.2 Hemoptysis; Z87.891 Personal history of nicotine dependence
CPT/HCPCS: 71010; 80048; 85025; 85610; 85730; 96374; 99284; J1200; J2930

== ENCOUNTER 2017-08-31 20:34 | Emergency (ER) | payer MEDICAID ==
[~2017-08-31 20:34] MED LIST changes: -ACYC-101 PO; +MAGICADU2 SWISH-SWAL; -VENTAER INH; -ZOFR4TAB PO
[2017-08-31 20:35] VITALS: BP 136/85; PULSE 94; RESP 18; TEMP 98.5; O2SAT 99
[2017-08-31] MEDS ORDERED: HYDR-3516 PO (20:42)
[2017-08-31] MEDS ORDERED: SODIUM CHLOR 0.9% 1000 ML INJ 1,000 ML IV SCH (21:08)
[2017-08-31] MEDS ORDERED: oxyCODONE/ACETAMINOPHEN 10 MG/325 MG TAB PO ONE (21:15)
[2017-08-31] MEDS ORDERED: ONDANSETRON HCL 4 MG/2 ML VIAL IVP ONE (21:15)
[2017-08-31] MEDS ORDERED: SODIUM CHLORIDE 0.9% FLUSH 10 ML FLUSH IV FLUSH PRN (21:15)
--- NOTE | 2017-08-31 21:15 | PD ---
HPI Chief Complaint: Flank/Kidney Pain Time Seen by Provider: 21:05 Travel History International Travel<30 days: No Contact w/Intl Traveler<30days: No Traveled to known affect area: No History of Present Illness HPI 37-year-old female with history of pseudotumor cerebri with a lumboperitoneal shunt, here for evaluation of right flank pain. Patient were to the pain started yesterday, sharp, radiates to her right lower abdomen, is constant, currently 6 out of 10, and her minimally worse at times. Pain is associated with nausea and vomiting. She also is feeling constipated. She has been having difficulty urinating. She has not noted any hematuria. No vaginal bleeding or discharge. No fevers or chills. She has had UTIs as well as kidney stones in the past and states that the pain feels similar to both. PFSH Past Medical History Anemia: Yes (GESTATIONAL) Arthritis: Yes (rheumatoid) Asthma: Yes Autoimmune Disease: Yes (RA) Blood Disorders: No Bipolar Disorder: Yes Anxiety: Yes Depression: Yes (BI-POLAR) Heart Rhythm Problems: Yes ("PALPITATIONS") Cancer: No Cardiovascular Problems: Yes High Cholesterol: Yes Chest Pain: No Congestive Heart Failure: No COPD: No Diabetes: No Diminished Hearing: No Endocrine: No Fibromyalgia: Yes Gastrointestinal Disorders: Yes (GERD, HIATAL HERNIA) GERD: Yes Genitourinary: Yes Hepatitis: No Hiatal Hernia: Yes Hypertension: No Immune Disorder: Yes (FIBROMYALGIA, RA) Implanted Vascular Access Dvce: No Kidney Stones: Yes Musculoskeletal: Yes (RA, FIBROMYALGIA) Neurologic: Yes (IIH) Psychiatric: Yes (BIPOLAR, PTSD) Reproductive: Yes (HYSTERECTOMY) Respiratory: Yes (ASTHMA) Immunizations Current: No Migraines: Yes Pancreatitis: Yes (denies) Thyroid Disease: No Tetanus Vaccination: > 5 Years Influenza Vaccination: No ?: Not : 5 Para: 3 : 2 Dilation and Curettage (D&C): Yes Tubal Ligation: Yes (2007) Past Surgical History Abdominal Surgery: No AICD: No Body Medical Devices: LUMBAR-PERITONEAL SHUNT Cardiac Surgery: No Section: Yes (X 1) Ear Surgery: No Endocrine Surgery: No Eye Surgery: No Genitourinary Surgery: No Gynecologic Surgery: Yes (HYSTERECTOMY, TUBAL, C SECTION) Hysterectomy: Yes Joint Replacement: No Neurologic Surgery: Yes (SHUNT LUMBAR SPINE) Oral Surgery: No Pacemaker: No Thoracic Surgery: No Tonsillectomy: Yes (adenoids too) Tympanostomy Tube: Yes Other Surgery: Yes (, UTERINE ABLATION, TONSILECTOMY, ADENOID REMOVED) Social History Alcohol Use: No Tobacco Use: No (QUIT AUGUST 2013) Substance Use: No Allergies-Medications (Allergen,Severity, Reaction): Coded Allergies: Fish Containing Products (Verified Allergy, Severe, unknown, 08/31/17) soybean (Verified Allergy, Severe, SEVERE GI UPSET, 08/31/17) albuterol (Verified Allergy, Intermediate, shakiness,anxiety, 08/31/17) doxycycline (Verified Allergy, Intermediate, severe vomiting/diarrhea, ) egg (Verified Allergy, Intermediate, 08/31/17) gi upset hydromorphone (Verified Allergy, Intermediate, chest pain, 08/31/17) lamotrigine (Verified Allergy, Intermediate, racing thoughts,worsened anxiety, 08/31/17) morphine (Verified Allergy, Intermediate, chest pain, 08/31/17) risperidone (Verified Allergy, Intermediate, tardive dyskinesia, 08/31/17) vancomycin (Verified Allergy, Intermediate, Hives/SOB, 08/31/17) Red man syndrome peanut (Verified Allergy, Unknown, 08/31/17) gi upset enoxaparin (Verified Adverse Reaction, Severe, RED RASH ON ABDOMEN AT INJECTION SITE, 08/31/17) sulfamethoxazole (Verified Adverse Reaction, Severe, Nausea/Vomiting, ) FACE SEVERELY RED, FEELS LIKE SKIN BURNING, VOMITING/Diarrhea trimethoprim (Verified Adverse Reaction, Severe, Nausea/Vomiting, 08/31/17 ) FACE SEVERELY RED, FEELS LIKE SKIN BURNING, VOMITING/Diarrhea cyclobenzaprine (Verified Adverse Reaction, Intermediate, sweating,unable to sleep and anxiety, 08/31/17) *MDRO Multi-Drug Resistant Organism (Verified Adverse Reaction, Unknown, 08/31/17) MRSA urine 01/14/15. Reported Meds & Prescriptions Reported Meds & Active Scripts Active Reported Hydrocodone-Acetaminophen 5-325 mg Tab 1 Tab PO BID Claritin (Loratadine) 10 Mg Cap 10 Mg PO DAILY Dulera 120 Act Inh (Mometasone-Formoterol 120 Act Inh) 100-5 Mcg/Act Inh 2 Puff INH BID Atorvastatin (Atorvastatin Calcium) 40 Mg Tab 40 Mg PO HS Zantac (Ranitidine HCl) 150 Mg Tab 150 Mg PO DAILY Protonix (Pantoprazole Sodium) 40 Mg Tab 40 Mg PO DAILY Aldactone (Spironolactone) 50 Mg Tab 50 Mg PO BID Lasix (Furosemide) 20 Mg Tab 20 Mg PO BID Review of Systems Except as stated in HPI: all other systems reviewed are Neg Physical Exam Narrative GENERAL: Well-developed, well-nourished, comfortable, no acute distress. SKIN: Focused skin assessment warm/dry. Well-healed midline/vertical surgical scar over the lumbar spine. No surrounding warmth, erythema, or induration. HEAD: Atraumatic. Normocephalic. EYES: Pupils equal and round. No scleral icterus. No injection or drainage. ENT: Mucous membranes pink and moist. NECK: Trachea midline. No JVD. CARDIOVASCULAR: Regular rate and rhythm. No murmur appreciated. RESPIRATORY: No accessory muscle use. Clear to auscultation. Breath sounds equal bilaterally. GASTROINTESTINAL: Abdomen soft, nondistended. Mild diffuse tenderness without peritoneal signs. Normal bowel sounds. MUSCULOSKELETAL: No obvious deformities. No clubbing. No cyanosis. No edema. Mild right CVA tenderness. No left CVA tenderness. No midline vertebral step- off or tenderness. NEUROLOGICAL: Awake and alert. No obvious cranial nerve deficits. Motor grossly within normal limits. Normal speech. PSYCHIATRIC: Appropriate mood and affect; insight and judgment normal. Data Data Last Documented VS Vital Signs Date Time Temp Pulse Resp B/P (MAP) Pulse Ox O2 Delivery O2 Flow Rate FiO2 08/31/17 21:27 83 18 110/76 (87) 99 Room Air 08/31/17 20:35 98.5 Orders Orders Complete Blood Count With Diff (08/31/17 21:08) Comprehensive Metabolic Panel (08/31/17 21:08) Prothrombin Time / Inr (Pt) (08/31/17 21:08) Act Partial Throm Time (Ptt) (08/31/17 21:08) Urinalysis - C+S If Indicated (08/31/17 21:08) Ct Abd/Pel W/O Iv Contrast (08/31/17 21:08) Iv Access Insert/Monitor (08/31/17 21:08) Ecg Monitoring (08/31/17 21:08) Oximetry (08/31/17 21:08) Ondansetron Inj (Zofran Inj) (08/31/17 21:15) Sodium Chlor 0.9% 1000 Ml Inj (Ns 1000 M (08/31/17 21:08) Sodium Chloride 0.9% Flush (Ns Flush) (08/31/17 21:15) Oxycodone-Acetamin 10-325 Mg (Percocet 1 (08/31/17 21:15) Labs Laboratory Tests Test 08/31/17 21:15 White Blood Count 5.6 TH/MM3 Red Blood Count 4.82 MIL/MM3 Hemoglobin 14.9 GM/DL Hematocrit 41.1 % Mean Corpuscular Volume 85.4 FL Mean Corpuscular Hemoglobin 30.9 PG Mean Corpuscular Hemoglobin Concent 36.2 % Red Cell Distribution Width 13.6 % Platelet Count 197 TH/MM3 Mean Platelet Volume 9.5 FL Neutrophils (%) (Auto) 52.7 % Lymphocytes (%) (Auto) 37.0 % Monocytes (%) (Auto) 7.5 % Eosinophils (%) (Auto) 2.5 % Basophils (%) (Auto) 0.3 % Neutrophils # (Auto) 3.0 TH/MM3 Lymphocytes # (Auto) 2.1 TH/MM3 Monocytes # (Auto) 0.4 TH/MM3 Eosinophils # (Auto) 0.1 TH/MM3 Basophils # (Auto) 0.0 TH/MM3 CBC Comment AUTO DIFF Prothrombin Time 10.5 SEC Prothromb Time International Ratio 1.0 RATIO Activated Partial Thromboplast Time 30.4 SEC Urine Color YELLOW Urine Turbidity CLEAR Urine pH 6.5 Urine Specific [place] 1.023 Urine Protein TRACE mg/dL Urine Glucose (UA) NEG mg/dL Urine Ketones NEG mg/dL Urine Occult Blood NEG Urine Nitrite NEG Urine Bilirubin NEG Urine Urobilinogen 2.0 MG/DL Urine Leukocyte Esterase SMALL Urine WBC 1 /hpf Urine Squamous Epithelial Cells 2 /hpf Urine Amorphous Sediment RARE Microscopic Urinalysis Comment CULT NOT INDICATED Blood Urea Nitrogen 12 MG/DL Creatinine 0.92 MG/DL Random Glucose 94 MG/DL Total Protein 6.9 GM/DL Albumin 3.6 GM/DL Calcium Level 8.3 MG/DL Alkaline Phosphatase 108 U/L Aspartate Amino Transf (AST/SGOT) 13 U/L Alanine Aminotransferase (ALT/SGPT) 24 U/L Total Bilirubin 0.5 MG/DL Sodium Level 139 MEQ/L Potassium Level 3.6 MEQ/L Chloride Level 105 MEQ/L Carbon Dioxide Level 27.8 MEQ/L Anion Gap 6 MEQ/L Estimat Glomerular Filtration Rate 68 ML/MIN [facility] Medical Decision Making Medical Screen Exam Complete: Yes Emergency Medical Condition: Yes Differential Diagnosis Nephrolithiasis, ureterolithiasis, UTI, pyelonephritis, cholecystitis, colitis Narrative Course Vital signs show heart rate 83, blood pressure 110/76, pulse ox 99% on room air , oral temp of 98.5F. CBC is unremarkable. CMP is unremarkable. UA shows small leukocyte esterase, otherwise unremarkable. No hematuria. CT abdomen pelvis: No acute abnormality. Patient was made aware of all findings per she is resting comfortably. She is stable for discharge home with outpatient follow-up with her primary care physician and neurosurgeon this week. She was informed on when to return to the emergency department patient verbalizes understanding and agreement with plan. Diagnosis Primary Impression: Right flank pain Referrals: Neurosurgeon 3 days Primary Care Physician 3 days Additional Instructions: Follow-up with your primary care physician this week. Follow-up with your neurosurgeon this week. Return to the emergency department for worsening symptoms or any other concerns. Scripts Ondansetron Odt (Zofran Odt) 4 Mg Tab 4 MG SL Q8HR Y for Nausea/Vomiting, #20 TAB 0 Refills Prov: Tristan Thompson MD 08/31/17 Oxycodone-Acetaminophen (Percocet) 10-325 mg Tab 1 TAB PO Q6H Y for PAIN, #10 TAB 0 Refills Prov: Tristan Thompson MD 08/31/17 Disposition: 01 DISCHARGE HOME Condition: Stable Tristan Thompson MD Aug 31, 2017 21:15
[2017-08-31 21:27] VITALS: BP 110/76; PULSE 83; RESP 18; O2SAT 99
[2017-08-31 21:58] LABS: BASOPHIL % 0.3 % (0.0-2.0); EOSINOPHIL # 0.1 TH/MM3 (0-0.4); EOSINOPHIL % 2.5 % (0.0-4.0); HEMATOCRIT 41.1 % (35.0-46.0); LYMPHOCYTE # 2.1 TH/MM3 (1.0-4.8); MEAN CELL VOLUME 85.4 FL (80.0-100.0); MEAN CORPUSCULAR HEMOGLOBIN 30.9 PG (27.0-34.0); MONO % 7.5 % (0.0-8.0); NEUT % 52.7 % (16.0-70.0); PLATELET COUNT 197 TH/MM3 (150-450); RED BLOOD COUNT 4.82 MIL/MM3 (4.00-5.30); RED CELL DISTRIBUTION WIDTH 13.6 % (11.6-17.2); WHITE BLOOD COUNT 5.6 TH/MM3 (4.0-11.0)
[2017-08-31 21:59] LABS: HEMO FLAGS AUTO DIFF; MEAN CORPUSCULAR HGB CONC 36.2 % (32.0-36.0)
--- NOTE | 2017-08-31 22:01 | RADRPT ---
EXAM DATE/TIME: 08/31/2017 21:34 [facility] COMPARISON: ABDOMEN KUB ONLY, April 14, 2017, 12:51. CT ABDOMEN & PELVIS W CONTRAST, March 07, 2015, 22:39. CT ABD OMEN & PELVIS W/O CONTRAST, February 09, 2015, 0:07. INDICATIONS : Right flank pain. ORAL CONTRAST: No oral contrast ingested. RADIATION DOSE: 15.75 CTDIvol (mGy) MEDICAL HISTORY : gerd SURGICAL HISTORY : Tubal ligation. Hysterectomy.lumbar shunt ENCOUNTER: Initial ACUITY: 1 day PAIN SCALE: 6/10 LOCATION: Right flank TECHNIQUE: Volumetric scanning of the abdomen and pelvis was performed. Using automated exposure control and ad justment of the mA and/or kV according to patient size, radiation dose was kept as low as reasonably achievable to obtain optimal diagnostic quality images. DICOM format image data is available electro nically for review and comparison. FINDINGS: LOWER LUNGS: The visualized lower lungs are clear. LIVER: Homogeneous density without lesion. There is no dilation of the biliary tree. No calcified gallston es. SPLEEN: Normal size without lesion. PANCREAS: Within normal limits. KIDNEYS: Normal in size and shape. There is no mass, stone, or hydronephrosis. ADRENAL GLANDS: Within normal limits. VASCULAR: There is no aortic aneurysm. BOWEL/MESENTERY: The stomach, small bowel, and colon demonstrate no acute abnormality. There is no free intraperitone al air or fluid. There is shunt tubing seen in the anterior upper quadrant of the abdomen in the cielo toneal cavity. There also is tubing extending from the right lateral abdomen into the spinal canal. ABDOMINAL WALL: Within normal limits. RETROPERITONEUM: There is no lymphadenopathy. BLADDER: No wall thickening or mass. REPRODUCTIVE: Within normal limits. There is a small amount of free fluid seen in the cul-de-sac. INGUINAL: There is no lymphadenopathy or hernia. MUSCULOSKELETAL: Within normal limits for patient age. CONCLUSION: No acute abnormality seen. Sabino Ortiz MD on August 31, 2017 at 21:55 Board Certified Radiologist. This report was verified electronically.
[2017-08-31 22:03] LABS: BLOOD, URINE NEG (NEG); COMMENT (UR) CULT NOT INDICATED; CULTURE IF INDICATED CULT NOT INDICATED; GLUCOSE,URINE NEG (NEG); KETONE, URINE NEG (NEG); NITRITE,URINE NEG (NEG); PH, URINE 6.5 (5.0-8.5); SQUAMOUS EPITHELIAL CELL URINE 2 /hpf (0-5); URINE COLOR YELLOW (YELLW/STRAW)
[2017-08-31 22:08] LABS: APTT (PATIENT) 30.4 SEC (24.3-30.1); PROTHROMBIN TIME - PATIENT 10.5 SEC (9.8-11.6)
[2017-08-31 22:16] LABS: ALT (GPT) 24 U/L (10-53); ANION GAP 6 MEQ/L (5-15); AST (GOT) 13 U/L (15-37); BICARBONATE 27.8 MEQ/L (21.0-32.0); BLOOD UREA NITROGEN 12 MG/DL (7-18); CHLORIDE 105 MEQ/L (98-107); GLOMERULAR FILTRATION RATE 68 ML/MIN (>89); POTASSIUM 3.6 MEQ/L (3.5-5.1); SODIUM (NA) 139 MEQ/L (136-145)
[2017-08-31 22:19] LABS: ALKALINE PHOSPHATASE 108 U/L (45-117); TOTAL BILIRUBIN ADULT 0.5 MG/DL (0.2-1.0)
[2017-08-31 22:25] LABS: PLATELET ESTIMATE SMEAR NORMAL (NORMAL); PLATELET MORPHOLOGY NORMAL (NORMAL); SCAN/DIFF AUTO DIFF CONFIRMED
[2017-08-31] MEDS ORDERED: ZOFR4TAB3 SL (22:27)
[2017-08-31] MEDS ORDERED: PERC10TA27 PO (22:27)
== END 2017-08-31 22:46 | disposition home or self-care (01) ==
LOC: NEPE 20:34
DX: R10.9 Unspecified abdominal pain (principal); R11.2 Nausea with vomiting, unspecified; K59.00 Constipation, unspecified; D64.9 Anemia, unspecified; M06.9 Rheumatoid arthritis, unspecified; J45.909 Unspecified asthma, uncomplicated; F31.9 Bipolar disorder, unspecified; M79.7 Fibromyalgia; E78.00 Pure hypercholesterolemia, unspecified
CPT/HCPCS: 74176; 80053; 81001; 84703; 85025; 85610; 85730; 96374; 99285; J2405; J7030

== ENCOUNTER 2017-10-20 21:34 | Emergency (ER) | payer MEDICAID ==
[~2017-10-20 21:34] MED LIST changes: +HYDR-3516 PO; -MAGICADU2 SWISH-SWAL; -OXYC1TAB36 PO; +PERC10TA27 PO; +ZOFR4TAB3 SL
[2017-10-20 21:35] VITALS: BP 150/79; PULSE 95; RESP 16; TEMP 98.1; O2SAT 98
--- NOTE | 2017-10-20 22:35 | PD ---
HPI Chief Complaint: Abdominal Pain Time Seen by Provider: 22:07 Travel History International Travel<30 days: No Contact w/Intl Traveler<30days: No Traveled to known affect area: No History of Present Illness HPI Patient is a 37-year-old female who's had a few days of headache right-sided abdominal pain. She has a shunt that goes from her lumbar area draining her CSF into her abdominal cavity is not a [employer]IST[employer] shunt is a lumbar to parietal shunt. Coming in complaining of headache she recently got over the viral influenza virus. She has not seen Dr. FELDMAN she says she's been discharged from his service. I ask her why she says this has do an insurance issue. Patient denies fever denies chills denies redness around the incision sites she recently again had a viral illness she's taken Tylenol for the pain without relief of her symptoms. PFSH Past Medical History Anemia: Yes (GESTATIONAL) Arthritis: Yes (rheumatoid) Asthma: Yes Autoimmune Disease: Yes (RA) Blood Disorders: No Bipolar Disorder: Yes Anxiety: Yes Depression: Yes (BI-POLAR) Heart Rhythm Problems: Yes ("PALPITATIONS") Cancer: No Cardiovascular Problems: Yes High Cholesterol: Yes Chest Pain: No Congestive Heart Failure: No COPD: No Diabetes: No Diminished Hearing: No Endocrine: No Fibromyalgia: Yes Gastrointestinal Disorders: Yes (GERD, HIATAL HERNIA) GERD: Yes Genitourinary: Yes Hepatitis: No Hiatal Hernia: Yes Hypertension: No Immune Disorder: Yes (FIBROMYALGIA, RA) Implanted Vascular Access Dvce: No Kidney Stones: Yes Musculoskeletal: Yes (RA, FIBROMYALGIA) Neurologic: Yes (IIH) Psychiatric: Yes (BIPOLAR, PTSD) Reproductive: Yes (HYSTERECTOMY) Respiratory: Yes (ASTHMA) Immunizations Current: No Migraines: Yes Pancreatitis: Yes (denies) Thyroid Disease: No ?: Not : 5 Para: 3 : 2 Dilation and Curettage (D&C): Yes Tubal Ligation: Yes (2007) Past Surgical History Abdominal Surgery: No AICD: No Body Medical Devices: LUMBAR-PERITONEAL SHUNT Cardiac Surgery: No Section: Yes (X 1) Ear Surgery: No Endocrine Surgery: No Eye Surgery: No Genitourinary Surgery: No Gynecologic Surgery: Yes (HYSTERECTOMY, TUBAL, C SECTION) Hysterectomy: Yes Joint Replacement: No Neurologic Surgery: Yes (SHUNT LUMBAR SPINE) Oral Surgery: No Pacemaker: No Thoracic Surgery: No Tonsillectomy: Yes (adenoids too) Tympanostomy Tube: Yes Other Surgery: Yes (, UTERINE ABLATION, TONSILECTOMY, ADENOID REMOVED) Social History Alcohol Use: No Tobacco Use: No (QUIT AUGUST 2013) Substance Use: No Allergies-Medications (Allergen,Severity, Reaction): Coded Allergies: Fish Containing Products (Verified Allergy, Severe, unknown, 10/20/17) soybean (Verified Allergy, Severe, SEVERE GI UPSET, 10/20/17) albuterol (Verified Allergy, Intermediate, shakiness,anxiety, 10/20/17) doxycycline (Verified Allergy, Intermediate, severe vomiting/diarrhea, 10/20) egg (Verified Allergy, Intermediate, 10/20/17) gi upset hydromorphone (Verified Allergy, Intermediate, chest pain, 10/20/17) lamotrigine (Verified Allergy, Intermediate, racing thoughts,worsened anxiety, 10/20/17) morphine (Verified Allergy, Intermediate, chest pain, 10/20/17) risperidone (Verified Allergy, Intermediate, tardive dyskinesia, 10/20/17) vancomycin (Verified Allergy, Intermediate, Hives/SOB, 10/20/17) Red man syndrome peanut (Verified Allergy, Unknown, 10/20/17) gi upset enoxaparin (Verified Adverse Reaction, Severe, RED RASH ON ABDOMEN AT INJECTION SITE, 10/20/17) sulfamethoxazole (Verified Adverse Reaction, Severe, Nausea/Vomiting, ) FACE SEVERELY RED, FEELS LIKE SKIN BURNING, VOMITING/Diarrhea trimethoprim (Verified Adverse Reaction, Severe, Nausea/Vomiting, 10/20/17) FACE SEVERELY RED, FEELS LIKE SKIN BURNING, VOMITING/Diarrhea cyclobenzaprine (Verified Adverse Reaction, Intermediate, sweating,unable to sleep and anxiety, 10/20/17) *MDRO Multi-Drug Resistant Organism (Verified Adverse Reaction, Unknown, ) MRSA urine 01/14/15. Reported Meds & Prescriptions Reported Meds & Active Scripts Active Zofran Odt (Ondansetron Odt) 4 Mg Tab 4 Mg SL Q8HR PRN Percocet (Oxycodone-Acetaminophen) 10-325 mg Tab 1 Tab PO Q6H PRN Reported Hydrocodone-Acetaminophen 5-325 mg Tab 1 Tab PO BID Claritin (Loratadine) 10 Mg Cap 10 Mg PO DAILY Dulera 120 Act Inh (Mometasone-Formoterol 120 Act Inh) 100-5 Mcg/Act Inh 2 Puff INH BID Atorvastatin (Atorvastatin Calcium) 40 Mg Tab 40 Mg PO HS Zantac (Ranitidine HCl) 150 Mg Tab 150 Mg PO DAILY Protonix (Pantoprazole Sodium) 40 Mg Tab 40 Mg PO DAILY Aldactone (Spironolactone) 50 Mg Tab 50 Mg PO BID Lasix (Furosemide) 20 Mg Tab 20 Mg PO BID Review of Systems Except as stated in HPI: all other systems reviewed are Neg General / Constitutional: No: Fever, Chills HENT: Positive: Headaches, Sore Throat Gastrointestinal: Positive: Abdominal Pain Physical Exam Narrative GENERAL: Patient is nontoxic-appearing SKIN: Warm and dry. HEAD: Atraumatic. Normocephalic. EYES: Pupils equal and round. No scleral icterus. No injection or drainage. ENT: No nasal bleeding or discharge. Mucous membranes pink and moist. NECK: Trachea midline. No JVD. She has no spinous process tenderness to the cervical spine and thoracic spine or lumbar spine with percussion CARDIOVASCULAR: Regular rate and rhythm. RESPIRATORY: No accessory muscle use. Clear to auscultation. Breath sounds equal bilaterally. GASTROINTESTINAL: Abdomen she has what feels like a bulb inside of her right lateral abdomen she says that is the valve of her lumbar- peritoneum no signs of infection there is a surgical healing incision above the area where the ball this felt non-tender, nondistended. No rebound no guarding Hepatic and splenic margins not palpable. MUSCULOSKELETAL: Extremities without clubbing, cyanosis, or edema. No obvious deformities. NEUROLOGICAL: Awake and alert. No obvious cranial nerve deficits. Motor grossly within normal limits. Five out of 5 muscle strength in the arms and legs. Normal speech. PSYCHIATRIC: Appropriate mood and affect; insight and judgment normal. Data Data Last Documented VS Vital Signs Date Time Temp Pulse Resp B/P (MAP) Pulse Ox O2 Delivery O2 Flow Rate FiO2 10/21/17 01:09 10/20/17 21:35 98.1 95 16 98 Room Air Orders Orders Ketorolac Inj (Toradol Inj) (10/20/17 23:00) Crtn-Qeddv-Abuc 325-50-40 Mg (Fioricet 3 (10/20/17 23:00) Complete Blood Count With Diff (10/20/17 22:55) Comprehensive Metabolic Panel (10/20/17 22:55) Ed Urine Pregnancytest Poc (10/20/17 23:37) Urinalysis - C+S If Indicated (10/20/17 23:37) Oxycodone-Acetamin 5-325 Mg (Percocet (10/21/17 00:30) Ed Discharge Order (10/21/17 01:07) Labs Laboratory Tests Test 10/20/17 23:09 10/20/17 23:57 White Blood Count 6.0 TH/MM3 Red Blood Count 5.37 MIL/MM3 Hemoglobin 15.6 GM/DL Hematocrit 46.0 % Mean Corpuscular Volume 85.7 FL Mean Corpuscular Hemoglobin 29.1 PG Mean Corpuscular Hemoglobin Concent 34.0 % Red Cell Distribution Width 13.3 % Platelet Count 219 TH/MM3 Mean Platelet Volume 9.2 FL Neutrophils (%) (Auto) 54.9 % Lymphocytes (%) (Auto) 33.7 % Monocytes (%) (Auto) 7.9 % Eosinophils (%) (Auto) 3.1 % Basophils (%) (Auto) 0.4 % Neutrophils # (Auto) 3.3 TH/MM3 Lymphocytes # (Auto) 2.0 TH/MM3 Monocytes # (Auto) 0.5 TH/MM3 Eosinophils # (Auto) 0.2 TH/MM3 Basophils # (Auto) 0.0 TH/MM3 CBC Comment DIFF FINAL Differential Comment Blood Urea Nitrogen 16 MG/DL Creatinine 0.77 MG/DL Random Glucose 93 MG/DL Total Protein 7.6 GM/DL Albumin 3.7 GM/DL Calcium Level 8.9 MG/DL Alkaline Phosphatase 99 U/L Aspartate Amino Transf (AST/SGOT) 17 U/L Alanine Aminotransferase (ALT/SGPT) 24 U/L Total Bilirubin 0.4 MG/DL Sodium Level 137 MEQ/L Potassium Level 3.8 MEQ/L Chloride Level 103 MEQ/L Carbon Dioxide Level 24.1 MEQ/L Anion Gap 10 MEQ/L Estimat Glomerular Filtration Rate 83 ML/MIN Urine Color YELLOW Urine Turbidity CLEAR Urine pH 5.5 Urine Specific [place] 1.026 Urine Protein NEG mg/dL Urine Glucose (UA) NEG mg/dL Urine Ketones NEG mg/dL Urine Occult Blood NEG Urine Nitrite NEG Urine Bilirubin NEG Urine Urobilinogen LESS THAN 2.0 MG/DL Urine Leukocyte Esterase NEG Urine RBC LESS THAN 1 /hpf Urine WBC 1 /hpf Urine Squamous Epithelial Cells 2 /hpf Urine Bacteria RARE /hpf Urine Mucus FEW /lpf Microscopic Urinalysis Comment CULT NOT INDICATED MDM Medical Decision Making Medical Screen Exam Complete: Yes Emergency Medical Condition: Yes Differential Diagnosis Viral headache versus infected shunt versus tension headache versus gastroenteritis Narrative Course Labs are within normal limits she has no elevated white count no neutrophilic shift. Chemistry is totally normal I decided after reviewing her 3 CAT scans that were completely normal but there is no indication to really radiate her her brain a fourth time within 4 years. I give her 1 Percocet and discharge her to follow-up as an outpatient. She refused Fioricet I give her Toradol and discharge her Diagnosis Primary Impression: Headache Referrals: Neftali Edmond MD Patient Instructions: Acute Headache (ED), General Instructions Scripts Ibuprofen (Ibuprofen) 800 Mg Tab 800 MG PO Q6HR Y for PAIN, #20 TAB 0 Refills Prov: Ozzy Escobar MD 10/21/17 Disposition: 01 DISCHARGE HOME Condition: Good Ozzy Escobar MD Oct 20, 2017 22:35
[2017-10-20] MEDS ORDERED: ACETAMIN 325 MG/BUTALBITAL 50 MG/CAFFEINE 40 MG TAB PO ONE (23:00)
[2017-10-20] MEDS ORDERED: KETOROLAC TROMETHAMINE 30 MG/ML (IVP) VIAL IV PUSH ONE (23:00)
[2017-10-20 23:33] LABS: AUTOMATED NEUTROPHIL # 3.3 TH/MM3 (1.8-7.7); BASOPHIL % 0.4 % (0.0-2.0); EOSINOPHIL # 0.2 TH/MM3 (0-0.4); EOSINOPHIL % 3.1 % (0.0-4.0); HEMOGLOBIN 15.6 GM/DL (11.6-15.3); LYMPH % 33.7 % (9.0-44.0); MEAN CELL VOLUME 85.7 FL (80.0-100.0); MEAN CORPUSCULAR HEMOGLOBIN 29.1 PG (27.0-34.0); MEAN PLATELET VOLUME 9.2 FL (7.0-11.0); MONO % 7.9 % (0.0-8.0); MONOCYTE # 0.5 TH/MM3 (0-0.9); NEUT % 54.9 % (16.0-70.0); PLATELET COUNT 219 TH/MM3 (150-450); RED BLOOD COUNT 5.37 MIL/MM3 (4.00-5.30); RED CELL DISTRIBUTION WIDTH 13.3 % (11.6-17.2)
[2017-10-20 23:46] LABS: ALT (GPT) 24 U/L (10-53)
[2017-10-20 23:48] LABS: ALKALINE PHOSPHATASE 99 U/L (45-117); TOTAL BILIRUBIN ADULT 0.4 MG/DL (0.2-1.0); TOTAL PROTEIN 7.6 GM/DL (6.4-8.2)
[2017-10-20 23:49] LABS: ALBUMIN 3.7 GM/DL (3.4-5.0); AST (GOT) 17 U/L (15-37); BICARBONATE 24.1 MEQ/L (21.0-32.0); BLOOD UREA NITROGEN 16 MG/DL (7-18); CALCIUM 8.9 MG/DL (8.5-10.1); CHLORIDE 103 MEQ/L (98-107); CREATININE 0.77 MG/DL (0.50-1.00); GLOMERULAR FILTRATION RATE 83 ML/MIN (>89); GLUCOSE,RANDOM 93 MG/DL (74-106); SODIUM (NA) 137 MEQ/L (136-145)
[2017-10-21 00:08] LABS: BACTERIA, URINE RARE /hpf; BILIRUBIN, URINE NEG (NEG); BLOOD, URINE NEG (NEG); GLUCOSE,URINE NEG (NEG); KETONE, URINE NEG (NEG); MUCUS URINE FEW /lpf (OCC); NITRITE,URINE NEG (NEG); PH, URINE 5.5 (5.0-8.5); SQUAMOUS EPITHELIAL CELL URINE 2 /hpf (0-5); URINE COLOR YELLOW (YELLW/STRAW); URINE LEUKOCYTE ESTERASE NEG (NEG)
[2017-10-21] MEDS ORDERED: oxyCODONE/ACETAMINOPHEN 5 MG/325 MG TAB PO ONE (00:30)
[2017-10-21] MEDS ORDERED: IBUP1TAB7 PO (01:20)
== END 2017-10-21 01:53 | disposition home or self-care (01) ==
LOC: NEPE 21:34
DX: R51 Headache (principal); E78.00 Pure hypercholesterolemia, unspecified; K21.9 Gastro-esophageal reflux disease without esophagitis
CPT/HCPCS: 80053; 81001; 84703; 85025; 96374; 99284; J1885